=== PATIENT | male | born 1955 | race Caucasian/White ===

== ENCOUNTER 2016-10-28 12:12 | Inpatient (IN) | payer OTHER ==
[~2016-10-28] VITALS: Ht 180.3 cm; Wt 64.9 kg
[2016-10-28 14:08] LABS: HEMOGLOBIN 14.2 gm/dl (14.0-17.5); RED BLOOD COUNT 4.55 M/UL (4.20-5.50); WHITE BLOOD COUNT 7.3 K/UL (4.5-11.0)
[2016-10-28 14:43] LABS: BUN/CREATININE RATIO 12 (0-10)
[2016-10-28] MEDS ORDERED: CATAPRES0.2 MG PO (18:25)
[2016-10-28] MEDS ORDERED: NORVASC10 MG PO (18:25)
[2016-10-28] MEDS ORDERED: LISINOPRIL-HCT1 EAC2 PO (18:26)
[2016-10-28] MEDS ORDERED: VENTOLIN HFA 66.7 GM INH (18:27)
[2016-10-29 06:30] LABS: HEMOGLOBIN 13.3 gm/dl (14.0-17.5); RED BLOOD COUNT 4.34 M/UL (4.20-5.50); WHITE BLOOD COUNT 7.1 K/UL (4.5-11.0)
[2016-10-29 06:52] LABS: BUN/CREATININE RATIO 9 (0-10)
[2016-10-30 05:31] LABS: HEMOGLOBIN 13.4 gm/dl (14.0-17.5); RED BLOOD COUNT 4.3 M/UL (4.20-5.50); WHITE BLOOD COUNT 6.2 K/UL (4.5-11.0)
[2016-10-30 05:52] LABS: BUN/CREATININE RATIO 11 (0-10)
[2016-10-31 06:00] LABS: HEMOGLOBIN 13.2 gm/dl (14.0-17.5); RED BLOOD COUNT 4.25 M/UL (4.20-5.50); WHITE BLOOD COUNT 6.6 K/UL (4.5-11.0)
[2016-10-31 06:25] LABS: BUN/CREATININE RATIO 10 (0-10)
[2016-10-31] MEDS ORDERED: PERCOCET 5-3251 EACH PO (14:03)
[2016-10-31] MEDS ORDERED: LIPITOR40 MG PO (14:04)
[2016-10-31] MEDS ORDERED: PLAVIX 75 MG TA75 MG PO (14:05)
[2016-10-31] MEDS ORDERED: ASPIR 8181 MG PO (14:06)
[2016-10-31] MEDS ORDERED: KEFLEX CAP 500500 MG PO (14:06)
[2016-12-02] MEDS ORDERED: PERCOCET 10-321 EACH PO (13:37)
[2016-12-02] MEDS ORDERED: OXYCODONE HCL5 MG PO (13:38)
[2016-12-02] MEDS ORDERED: PROTONIX40 MG PO (13:40)
[2016-12-02] MEDS ORDERED: THIAMINE HCL50 MG PO (13:40)
[2016-12-02] MEDS ORDERED: FOLIC ACID1 MG PO (13:42)
[2016-12-02] MEDS ORDERED: CLINDAMYCIN HC300 MG PO (13:42)
== END 2016-10-31 14:50 | disposition home health service (06) | DRG 271 ==
LOC: ER1 12:12 → ZEROF 15:39 → M/S 15:39
PROVIDERS: Specialist/Technologist Athletic Trainer; ADMIT Emergency Medicine
PROC: 04CM3ZZ Extirpation of Matter from Right Popliteal Artery, Percutaneous Approach (ICD-10-PCS; principal; 2016-10-29)
PROC: 047M3Z1 Dilation of Right Popliteal Artery using Drug-Coated Balloon, Percutaneous Approach (ICD-10-PCS; 2016-10-29)
PROC: B41D1ZZ Fluoroscopy of Aorta and Bilateral Lower Extremity Arteries using Low Osmolar Contrast (ICD-10-PCS; 2016-10-29)
DX: I70.261 Atherosclerosis of native arteries of extremities with gangrene, right leg (principal); E87.1 Hypo-osmolality and hyponatremia; L97.519 Non-pressure chronic ulcer of other part of right foot with unspecified severity; L03.031 Cellulitis of right toe; B95.62 Methicillin resistant Staphylococcus aureus infection as the cause of diseases classified elsewhere; F10.10 Alcohol abuse, uncomplicated; I10 Essential (primary) hypertension; F17.200 Nicotine dependence, unspecified, uncomplicated; L60.2 Onychogryphosis; Z86.73 Personal history of transient ischemic attack (TIA), and cerebral infarction without residual deficits; Z72.3 Lack of physical exercise; Z79.899 Other long term (current) drug therapy; Z82.49 Family history of ischemic heart disease and other diseases of the circulatory system
CPT/HCPCS: 36245; 36415; 73610; 73630; 75630; 80048; 80053; 80061; 80202; 82436; 82550; 82553; 83036; 83605; 83735; 83874; 84133; 84300; 84484; 85025; 85027; 85347; 85610; 85730; 86140; 87040; 87070; 87205; 93005; 93925; 94640; 94664; 96365; 96366; 96367; 96375; 96376; 99284; C1887; C2623; G0480; J1644; J1650; J2250; J2270; J2405; J2543; J3010; J3370; J7040; J7050; J7070; Q9965

== ENCOUNTER → 2016-11-10 | Outpatient (CLI) | payer OTHER ==
[~2016-11-10] MED LIST: ASPIR 8181 MG PO; CATAPRES0.2 MG PO; CLINDAMYCIN HC300 MG PO; FOLIC ACID1 MG PO; KEFLEX CAP 500500 MG PO; LIPITOR40 MG PO; LISINOPRIL-HCT1 EAC2 PO; NORVASC10 MG PO; OXYCODONE HCL5 MG PO; PERCOCET 10-321 EACH PO; PERCOCET 5-3251 EACH PO; PLAVIX 75 MG TA75 MG PO; PROTONIX40 MG PO; THIAMINE HCL50 MG PO; VENTOLIN HFA 66.7 GM INH
[2016-11-10 12:15] LABS: HEMOGLOBIN 13.5 gm/dl (14.0-17.5); RED BLOOD COUNT 4.35 M/UL (4.20-5.50)
== END ==
LOC: LAB 11:28
PROVIDERS: Podiatrist Foot & Ankle Surgery
DX: L03.119 Cellulitis of unspecified part of limb (principal)
CPT/HCPCS: 36415; 85027; 86140

== ENCOUNTER → 2016-11-19 | Outpatient (CLI) | payer OTHER | LOC: NM 09:46 | DX: M86.171 Other acute osteomyelitis, right ankle and foot (principal); R93.8 Abnormal findings on diagnostic imaging of other specified body structures | CPT/HCPCS: 78315; A9503 ==